=== PATIENT | female | born 1995 | race Caucasian/White ===

== ENCOUNTER 2024-02-05 04:56 | Emergency (ER) | payer MEDICAID, SELFPAY ==
--- NOTE | 2024-02-05 | ECG_ITS ---
Test Reason : CHEST PAIHN Blood Pressure : / mmHG Vent. Rate : 087 BPM Atrial Rate : 087 BPM P-R Int : 186 ms QRS Dur : 104 ms QT Int : 378 ms P-R-T Axes : 018 027 040 degrees QTc Int : 454 ms Normal sinus rhythm Normal ECG No previous ECGs available Referred By: Generic ED Physician Electronically Signed By:CLEMENTINA MONSALVE
--- NOTE | ~2024-02-05 | CT_ITS ---
EXAMINATION: CT ANGIOGRAM CHEST CLINICAL INFORMATION: Chest pain, shortness of breath. History of MaricarmenJayro COMPARISON: X-ray 02/05/2024 TECHNIQUE: Multiple axial images were obtained through the chest after the administration of 65 mL of Omnipaque 350 intravenous contrast. Extensive vascular post-processing including two-dimensional and three-dimensional reformatted images were created and reviewed on an independent workstation. This CT examination was performed using dose optimization techniques as appropriate, variously including the following: *Automated exposure control *Adjustment of mA and/or kV according to patient size (this includes techniques or standardized protocols for targeted exams where dose is matched to indication/reason for exam; i.e. extremities or head) *Use of iterative reconstruction technique DLP: 342 mGy-cm FINDINGS: Vascular: A TAVR stent is present, with metallic artifact. This limits evaluation. In the provided images, no evidence of of filling defects in the main, lobar, segmental vessels to suggest definite pulmonary embolus. LUNG: There are 2 nodules, each measuring 6 mm, in the right upper lobe, along the fissure. No dense consolidation. PLEURA: No pleural effusion or pneumothorax. MEDIASTINUM: Normal heart size. No pericardial effusion. No hilar or mediastinal lymphadenopathy. VASCULAR: Ascending aorta measures 4 cm. CHEST WALL/AXILLA: No axillary or internal mammary lymphadenopathy. OSSEOUS STRUCTURES: No acute or suspicious osseous abnormality. Sternotomy wires present. UPPER ABDOMEN: No acute findings . Surgical clips suggesting prior cholecystectomy. CT/CT angio chest PE protocol IMPRESSION: 1. A TAVR stent is present. Metallic artifact from the stent with associated limitation evaluation. 2. No evidence of filling defects in the central, segmental vessels to suggest embolus. 3.There are 2 nodules, each measuring 6 mm, in the right upper lobe, along the fissure. Although there is some variation in the management of thyroid nodules, these are the latest According to the UPDATED 2017 Fleischner Society recommendations, the advised follow-up imaging for multiple solid nodules, the largest measuring 6 mm or greater, is: LOW RISK PATIENT: CT at 3-6 months, then consider CT at 18-24 months. HIGH RISK PATIENT: CT at 3-6 months, then at 18-24 months. 4. Ascending aorta measures 4 cm. Fleischner guidelines were followed. Electronically signed by: Cameron Mckinney MD 02/05/2024 08:30 AM EDT RP
--- NOTE | ~2024-02-05 | XR_ITS ---
EXAMINATION: XR CHEST CLINICAL INFORMATION: Chest pain COMPARISON: None available. TECHNIQUE: Frontal view of the chest was obtained. FINDINGS: Multiple unfractured median sternotomy wires are noted. A TAVR stent is visualized. The heart size is normal. No acute focal pulmonary consolidation. Normal pattern of pulmonary vasculature. No pleural effusions or pneumothoraces. XR/XR chest 1V IMPRESSION: *No acute cardiopulmonary abnormalities. *Multiple unfractured median sternotomy wires. *Aortic root stent Electronically signed by: Don Fish MD 02/05/2024 06:22 AM EDT
[2024-02-05 05:11] VITALS: BP 127/68; PULSE 100; O2SAT 98
[2024-02-05 05:19] VITALS: BMI 35.5
[2024-02-05 05:32] LABS: Hemoglobin 10.2 g/dl (12.0-16.0); Mean Corpuscular HGB Conc 30.9 g/dl (31.0-35.0); Mean Corpuscular Hemoglobin 24.7 pg (27.0-33.0); Mean Corpuscular Volume 79.9 fL (80.0-98.0); Mean Platelet Volume 8.5 fL (9.4-12.3); Platelet Count 402 X10*3/uL (160-400); Red Blood Count 4.13 X10*6/uL (4.20-5.50); Red Cell Distribution Width 16.3 % (11.0-16.0); White Blood Count 6.9 X10*3/uL (4.8-10.8)
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
[2024-02-05 05:50] LABS: Alanine Aminotransferase 25 U/L (0-31); Albumin Level 3.8 g/dL (3.5-5.0); Alkaline Phosphatase 84 U/L (39-117); Anion Gap 16 (12-20); Aspartate Amino Transferase 26 U/L (5-31); Bilirubin Total 0.2 mg/dL (0.0-1.0); Blood Urea Nitrogen 15 mg/dL (9-16); Calcium 9.2 mg/dL (8.4-10.2); Carbon Dioxide 20 mmol/L (22-29); Chloride 108 mmol/L (96-108); Creatinine Clr Calc Pharmacy 112.6; Estimated Glomerular Filt Rate > 60; Glucose Random 100 mg/dL (60-115); Magnesium 2.1 mg/dL (1.6-2.6); Potassium 3.8 mmol/L (3.3-5.1); Sodium 140 mmol/L (135-145); Total Protein 7.6 g/dL (6.5-8.0)
[2024-02-05 05:53] VITALS: PULSE 77
[2024-02-05 05:56] LABS: Troponin-I High Sensitivity < 2.7 ng/L (<3.5-17.0)
[2024-02-05 06:34] LABS: INTERNATIONAL NORM RATIO 1.3 (0.9-1.1); Prothrombin Time 15.6 SEC (11.1-13.3)
[2024-02-05 06:36] LABS: D Dimer High Sensitivity 330 NG/ML
[2024-02-05] MEDS: iohexoL 350 MG/ML 100 ML INFUS..BTL IV (07:10)
[2024-02-05 08:24] VITALS: BP 114/59; PULSE 74; RESP 24; TEMP 37.1; O2SAT 96
--- NOTE | 2024-02-05 09:38 | PC.NURSE ---
Call received from Marielos at [facility] inquiring about an update for Pt. Marielos was advised Pt is medically cleared at this time however is awaiting a Care Team consult. Marielos wished to express that Pt carries a Dx of Borderline Personality D/O--advised that CT would be made aware. Marielos can be contacted at [phone] for updates. Marielos reports Pt will be an ambulance transport should she return to [facility].
[2024-02-05 12:00] VITALS: BP 105/50; PULSE 80; RESP 22; TEMP 37.1; O2SAT 96
--- NOTE | 2024-02-05 12:21 | MHC.EDTECH ---
This tech answered pt tiffanie yan pt c/o chest pain 12/20 and AVIS palma aware.
[2024-02-05] MEDS: LORazepam 1 MG TABLET PO (13:00)
[2024-02-05 16:00] VITALS: RESP 16
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
[2024-02-05] MEDS: LORazepam 1 MG TABLET 2 MG PO (18:43)
[2024-02-05 20:59] VITALS: BP 145/66; PULSE 100; RESP 16; TEMP 36.6; O2SAT 100
== END 2024-02-05 21:01 | disposition home or self-care (01) ==
PROVIDERS: Emergency Medicine; Emergency Provider Emergency Medicine Emergency Medical Services; PCP Internal Medicine
DX: R07.89 Other chest pain (principal); R06.02 Shortness of breath; T76.21XA Adult sexual abuse, suspected, initial encounter; Z79.899 Other long term (current) drug therapy
CPT/HCPCS: 36415; 71045; 71275; 80053; 83735; 84484; 85027; 85379; 85610; 93005; 99285; Q9967